=== PATIENT | male | born 1975 | race Caucasian/White ===

== ENCOUNTER 2022-05-27 11:50 | Inpatient (IN) | payer SELFPAY ==
[2022-05-27 12:12] LABS: Urine Blood Trace-intact (Negative); Urine Glucose Trace (Negative); Urine Protein 1+ (Negative); Urine Specific Gravity >=1.030 (1.005-1.030)
[2022-05-27] MEDS ORDERED: NOREPINEPHRINE 4mg/D5W 250mL 4 MG/250 ML BAG IV ONE (12:14)
[2022-05-27] MEDS ORDERED: NA CHLORIDE 0.9% 250 ML IV PRN (12:24)
[2022-05-27] MEDS ORDERED: dexAMETHasone 10 MG/ML VIAL IV SCH ×2 (12:29→17:00)
--- NOTE | 2022-05-27 12:29 | RAD REPORT ---
EXAM DESCRIPTION: RAD - Chest Single View - 05/27/2022 12:22 pm CLINICAL HISTORY: CPR, Over dose COMPARISON: No comparisons FINDINGS: Lines: Endotracheal tube at the clavicular heads.NG tube overlies the stomach. Lungs: No evidence of edema or pneumonia. Pleural: Poorly defined opacities in the left lung and right lung base. Cardiac: Enlarged cardiac silhouette. Bones: No acute fractures. Other: None IMPRESSION: Bilateral opacities, left greater than right, which could reflect sequela of aspiration.
[2022-05-27 12:33] LABS: Absolute Lymphocytes (CBC) 2.9 K/uL (0.7-4.9); Hematocrit 41.4 % (39.6-49.0); Lymphocytes % 27.1 % (15.3-44.8); MCV 96.5 fL (80-100); MPV 8.4 fL (7.6-11.3); RBC Red Blood Cell Count 4.29 M/uL (4.33-5.43)
[2022-05-27 12:40] LABS: Protime INR 1.15
--- NOTE | 2022-05-27 12:59 | RAD REPORT ---
EXAM DESCRIPTION: CT - CTHCSPWOC - 05/27/2022 12:44 pm CLINICAL HISTORY: Unresponsive COMPARISON: No comparisons TECHNIQUE: Axial 5 mm thick images of the head were obtained. Axial 2 mm thick images of the cervical spine were obtained with sagittal and coronal reconstruction images generated and reviewed. All CT scans are performed using dose optimization technique as appropriate and may include automated exposure control or mA/KV adjustment according to patient size. FINDINGS: CT HEAD WITHOUT CONTRAST: Diffuse loss of the cohn-white differentiation within the cerebral hemispheres bilaterally and the ba brock ganglia with generalized effacement of the sulci.No acute intracranial hemorrhage. No midline luann ft. No hydrocephalus though the ventricular system is partially effaced. Paranasal sinus thickening.The calvarium is intact. CT CERVICAL SPINE WITHOUT CONTRAST: No fracture or subluxation.No prevertebral soft tissues swelling is identified. Enteric tube and orog astric tube. Airspace disease is present in the lungs. Multilevel degenerative changes are present in the spine. IMPRESSION: 1. Findings compatible with a global hypoxic/ischemic insult. 2. No acute fracture traumatic malalignment of the cervical spine.
[2022-05-27 13:06] LABS: ALT/SGPT 114 U/L (12-78); AST/SGOT 89 U/L (15-37); Albumin 3.4 g/dL (3.4-5.0); Alkaline Phosphatase 51 U/L (45-117); BUN Blood Urea Nitrogen 19 mg/dL (7-18); Bicarbonate 20 mmol/L (21-32); Bilirubin Direct 0.3 mg/dL (0-0.2); Bilirubin Total 0.6 mg/dL (0.2-1.0); Glomerular Filtration Rate 56 ml/min (=/>90); Glucose Level 296 mg/dL (74-106); Magnesium 2.3 mg/dL (1.8-2.4); NT PRO-BNP 22 pg/mL (<125); Potassium 3.7 mmol/L (3.5-5.1); Protein, Total 6.5 g/dL (6.4-8.2); Sodium Level 138 mmol/L (136-145); Troponin High Sensitivity 8.3 pg/mL (<58.9)
[2022-05-27 13:19] LABS: Barbiturates NEGATIVE (NEGATIVE); Benzodiazepines NEGATIVE (NEGATIVE); Cocaine NEGATIVE (NEGATIVE); METHAMPHETAM NEGATIVE (NEGATIVE); Methadone NEGATIVE (NEGATIVE); Opiates NEGATIVE (NEGATIVE); Phencyclidine NEGATIVE (NEGATIVE); THC Cannibis NEGATIVE (NEGATIVE)
[2022-05-27] MEDS ORDERED: FOSPHENYTOIN PE 500 MG/10 ML VIAL ONE ×2 (13:41→13:45)
[2022-05-27] MEDS ORDERED: NA CHLORIDE 0.9% 100 ML ONE (13:42)
[2022-05-27] MEDS ORDERED: propofoL 1,000 MG/100 ML VIAL IV ONE (13:46)
[2022-05-27] MEDS ORDERED: MORPHINE 4 MG/ML SYR ONE (13:57)
[2022-05-27 14:03] LABS: Arterial Blood Carboxyhemoglob 1.9 % (0-1.5); Blood Gas Oxyhemoglobin 95.1 % (94-97); Blood O2 Saturation 98.2 % (92-98.5)
[2022-05-27] MEDS ORDERED: dexAMETHasone 10 MG/ML VIAL ONE (14:23)
--- NOTE | 2022-05-27 15:25 | P.HP ---
Certification for Inpatient With expected LOS: >2 Midnights Practitioner: I am a practitioner with admitting privileges, knowledge of patient current condition, hospital course, and medical plan of care. Services: Services provided to patient in accordance with Admission requirements found in Title 42 Section 412.3 of the Code of Federal Regulations Patient History Date of Service: 05/27/22 Reason for admission: Comatosed History of Present Illness: Pt is 47 yrs of age patient lost consciousness apparently he was talking to his girlfriend there is no preceding history of coronary artery disease history of drug drug abuse but that has been resolved all denies any chest pain was admitted with CPR in progress currently he is comatose on propofol Allergies No Known Allergies Allergy (Unverified 05/27/22 15:22) - Past Medical/Surgical History -: Diabetes Review of Systems is unable to be obtained Physical Examination - Physical Exam General: Comatose Respiratory: Clear to auscultation bilaterally, Diminished Cardiovascular: No edema, Regular rate/rhythm Gastrointestinal: Normal bowel sounds, Soft and benign Musculoskeletal: Other (Extremities mottled) Neurological: Other (Patient is comatose frontal reflexes are negative pupils fixed and dilated) Assessment and Plan - Problems (Diagnosis) (1) Acute anoxic encephalopathy Current Visit: Yes Status: Acute Plan: Patient is 47 years of age admitted with acute anoxic encephalopathy apparently passed out quite suddenly apart from diabetes no other medical issues he is currently on a ventilator pupils fixed and dilated extremities cold and clammy labs reviewed CT scan of the head consistent with anoxic encephalopathy prognosis is very poor discussed with the father his name is Steven telephone #[phone] is in agreement with no CPR no cardioversion informed and will observe him for at least 48 hours if there is no progress consider withdrawing from the ventilator and he agrees on Rocephin and fosphenytoin in addition to steroid - Advance Directives Does patient have a Living Will: No Does patient have a Durable POA for Healthcare: No
[2022-05-27] MEDS ORDERED: FENTANYL CITR 100 MCG/2 ML IV PRN (15:27)
[2022-05-27] MEDS ORDERED: LORazepam 2 MG/ML VIAL IV PRN (15:27)
--- NOTE | 2022-05-27 15:36 | ER ---
Nurse's Notes [facility] Name: Steven Jenkins Age: 47 yrs Sex: Male : 1975 Arrival Date: 05/27/2022 Time: 11:52 Bed 3 Private MD: Diagnosis: Cardiac arrest, cause unspecified;Cerebral edema;Anoxic brain injury Presentation: 05/27 11:44 Chief complaint: EMS states: Found blue, unresponsive with agonal respirations by . ss reported to PD that he is known to use Heroin. Unknown down time. CPR initiated by PD upon arrival to scene. Initial rhythm noted by EMS is PEA. Medications given: Narcan 4 mg, Epi x 4 IVP. Last epi given at 1140, Rhythm upon arrival to ED is sinus tach at 125 bpm. Care prior to arrival: oral intubation. 7.0 ET tube 22 cm at teeth. IV initiated. 18 GA, in the left antecubital area, Oxygen administered. via AMBU bag. Compressions began prior to arrival. 11:44 Method Of Arrival: EMS: [facility] ss 11:44 Acuity: FAUSTINA 1 ss 11:44 Coronavirus screen: Unable to obtain. Ebola Screen: Unable to complete the Ebola ss screening because:. Initial Sepsis Screen: Does the patient meet any 2 criteria? HR > 90 bpm. No. Patient's initial sepsis screen is negative. Does the patient have a suspected source of infection? No. Patient's initial sepsis screen is negative. Risk Assessment: Do you want to hurt yourself or someone else? Patient reports no desire to harm self or others. Onset of symptoms is unknown. Triage Assessment: 12:23 General: Appears well groomed, Behavior is unresponsive. Pain: Denies pain. Neuro: ll1 Meyer Agitation-Sedation Scale (RASS): -5 Unarousable Level of Consciousness is unresponsive, Oriented to none. Cardiovascular: Heart tones S1 S2 Capillary refill < 3 seconds Clubbing of nail beds is absent Patient's skin is warm and dry. Rhythm is sinus tachycardia. Respiratory: Airway is patent Trachea midline Respiratory effort is even, unlabored, Respiratory pattern is regular, symmetrical. GI: Abdomen is flat, Bowel sounds present X 4 quads. Musculoskeletal: Circulation, motion, and sensation intact. Capillary refill < 3 seconds. Historical: - Allergies: 15:25 No Known Allergies; kr3 - Home Meds: 11:59 Unable to obtain [Active]; ss - PMHx: 15:25 Diabetes mellitus; kr3 - PSHx: 15:25 None; kr3 - Immunization history:: Adult Immunizations unknown. - Social history:: Smoking status: unknown. Screenin:10 Abuse screen: Denies threats or abuse. Denies injuries from another. Nutritional bailey screening: No deficits noted. Tuberculosis screening: No symptoms or risk factors identified. Fall Risk. Assessment: 11:45 CPR assessment: unresponsive, pupils fixed \\T\\ dilated, intubated, Ambu ventilation. ss Cardiac rhythm is Sinus tach. 12:13 Reassessment: No changes from previously documented assessment. Patient and/or family ll1 updated on plan of care and expected duration. Pain level reassessed. 12:25 Reassessment: No changes from previously documented assessment. Reassessment:. ll1 12:53 Reassessment: No changes from previously documented assessment. ll1 13:50 Reassessment: Family at bedside. ss 14:15 Reassessment: Spoke with Father, Steven Jenkins and Mother Arianna Jenkins who states ss that they would like to officially make patient DNR status. Dr. Reyes spoke with family as well. Point of Contact for Family [phone], . Dr. Leal notified and states he will call the family. 14:32 Reassessment: No changes from previously documented assessment. Patient and/or family kr3 updated on plan of care and expected duration. Pain level reassessed. 15:20 Reassessment: No changes from previously documented assessment. Patient and/or family kr3 updated on plan of care and expected duration. Pain level reassessed. 15:45 Reassessment: No changes from previously documented assessment. Patient and/or family kr3 updated on plan of care and expected duration. Pain level reassessed. Vital Signs: 11:46 BP 73 / 46; ss 11:46 Pulse 107; Resp 18 A; Temp 98.2(R); Pulse Ox 91% on 15 lpm ETT ambu; Weight 111.13 kg; bailey Height 6 ft. 0 in. (182.88 cm); 12:22 BP 168 / 94; Pulse 126; Resp 18; Pulse Ox 99% on ETT vent; ll1 12:30 BP 208 / 120; Pulse 130; Resp 18; Pulse Ox 99% ; ll1 12:51 BP 224 / 135; Pulse 139; Resp 20; ll1 13:32 BP 103 / 133; Pulse 131; Resp 22 A; Pulse Ox 97% on ETT vent; ll1 13:51 BP 190 / 124; Pulse 130; Resp 22; Temp 98.4(TE); Pulse Ox 96% on ETT vent; kr3 13:57 BP 185 / 109; Pulse 121; Resp 21; Pulse Ox 96% on ETT vent; kr3 14:00 BP 160 / 93; Pulse 113; Pulse Ox 92% on ETT vent; kr3 14:03 BP 163 / 105; Pulse 114; Resp 22; Pulse Ox 88% on ETT vent; kr3 14:27 BP 158 / 99; Pulse 112; Resp 23; Pulse Ox 86% on ETT vent; kr3 14:32 BP 165 / 100; Pulse 114; Resp 22; Pulse Ox 87% on ETT vent; kr3 15:21 BP 169 / 95; Pulse 116; Resp 20; Pulse Ox 93% ; kr3 15:27 Weight 108.86 kg; Height 6 ft. 1 in. (185.42 cm); kr3 15:27 Body Mass Index 31.66 (108.86 kg, 185.42 cm) kr3 12:51 Dr. Reyes informed. Verbalized understanding. ll1 14:00 Dr. Reyes informed of O2 slowly dropping. RT paged. Dr. Reyes speaking with family kr3 about code status. 15:27 information from girlfriend. kr3 Kim Coma Score: 11:46 Eye Response: none(1). Verbal Response: none(1). Motor Response: none(1). Total: 3. ss ED Course: 11:49 Humphrey cath inserted, using sterile technique, 16 Fr., by ED staff, balloon inflated, ss other Inserted by ENA Trammell. Inserted saline lock: 18 gauge in right wrist, using aseptic technique. ,using aseptic technique. Insertion by ENA Grover. 11:52 Patient arrived in ED. eb 11:55 Maintain EMS IV. Dressing intact. Good blood return noted. Site clean \\T\\ dry. Gauge \\T\\ ss site: 18 gauge in L AC. 11:58 Triage completed. ss 12:00 Patient has correct armband on for positive identification. ss 12:04 EKG done, by ED staff, reviewed by Juan Pablo Reyes MD. mb7 12:04 Patient has correct armband on for positive identification. mb7 12:10 Assisted provider with central line placement. Set up central line tray. in right bailey femoral. Dressed with Blood was collected. Inserted saline lock: 18 gauge in left antecubital area, using aseptic technique. Accessed central line 3 lumen. 12:12 Assisted provider with central line placement. Set up central line tray. Triple lumen ss line placed in right femoral. Line placed by Juan Pablo Reyes MD Placement verified by blood return, Dressed with 4X4s, Tegaderm, Blood was collected. Patient tolerated well. Before procedure, did Practitioner(s) obtain informed consent? No. 12:13 Sujatha Nava, RN is Primary Nurse. kr3 12:13 Jp Can RN is Primary Nurse. ll1 12:14 Juan Pablo Reyes MD is Attending Physician. kdr 12:22 COVID-19 SARS RT PCR (Document "Date of Onset" if Symptomatic) Sent. mb7 12:23 XRAY Chest (1 view) In Process Unspecified. EDMS 15:31 Silvestre Leal MD is Hospitalizing Provider. ss 15:45 Patient admitted, IV remains in place. kr3 15:45 Arm band placed on. kr3 Administered Medications: 11:55 Drug: EPINEPHrine 0.1mg/mL 1:10,000 1 mg {Note: Administered by ENA Grover.} Route: ss IVP; Site: left antecubital; 12:26 Follow up: Response: No adverse reaction bailey 12:27 Drug: NS 0.9% 1000 ml Route: IV; Rate: 125 ml/hr; Site: right forearm; bailey 15:46 Follow up: IV Status: Infusion continued upon admission kr3 12:30 Drug: NS 0.9% 1000 ml Route: IV; Rate: 1 bolus; Site: right hand; ph 15:46 Follow up: Response: No adverse reaction; IV Status: Completed infusion; IV Intake: kr3 1000ml 13:45 Drug: CEREbyx (fosphenytoin) 1 grams Route: IVPB; Site: right hand; ph 14:33 Follow up: Response: No adverse reaction; IV Status: Completed infusion; IV Intake: kr3 100ml 13:50 Drug: Propofol 0.5 mg/kg Route: IVP; Site: right femoral; kr3 14:33 Follow up: Response: No adverse reaction kr3 13:54 Drug: morphine 4 mg Route: IVP; Infused Over: 4 mins; Site: right femoral; ph 14:33 Follow up: Response: No adverse reaction kr3 14:25 Drug: Dexamethasone 10 mg Route: IVP; Site: right hand; kr3 14:34 Follow up: Response: No adverse reaction kr3 15:31 Not Given (Hemodynamic Parameters): Levophed (norepinephrine) 0.1 mcg/kg/min IV at ss calculated rate See Administration Instructions; (Standard concentration 4 mg / 250 mL D5W); Recommended max rate 3 mcg/kg/min; Titrate 0.05 mcg/kg/min as often as every 5 minutes to achieve goal (see titration policy); Goal parameter MAP greater than 65 mmHg. Medication: 12:25 VIS not applicable for this client. ll1 Intake: 14:33 IV: 100ml; Total: 100ml. kr3 15:46 IV: 1000ml; Total: 1100ml. kr3 Outcome: 15:36 Decision to Hospitalize by Provider. ss 15:44 Admitted to ICU accompanied by nurse, via stretcher, room ICU 3, with oxygen, on kr3 monitor, with chart, Report called to Mojgan Rosen RN. 15:44 Condition: stable 15:45 Outcome Resuscitation successful kr3 16:19 Patient left the ED. kr3 Signatures: Dispatcher [employer] EDMS Juan Pablo Reyes MD MD [facility] Nancie Levin RN RN Arianna Pandey RN RN ph Botello, Elizabeth eb Lewis, Lynsay, RN RN ll1 Mara Allen mb7 Lenore Rios RN RN ha Reid, Kelley, RN RN kr3 Corrections: (The following items were deleted from the chart) 12:10 11:46 Pulse 107bpm; Resp 18bpm; Assisted; Pulse Ox 91% 15 lpm ambu; Temp 98.3F bailey Temporal; ss 14:29 14:03 BP 163 / 105; Pulse 114bpm; Resp 22bpm; Pulse Ox 96%; kr3 kr3 15:25 11:59 Allergies: Unable to obtain; kr3 PMHx: Unable to Obtain; ss kr3 PSHx: Unable to Obtain; ss kr3
--- NOTE | 2022-05-27 15:37 | EDPHYS ---
Physician Documentation [facility] Name: Steevn Jenkins Age: 47 yrs Sex: Male : 1975 Arrival Date: 05/27/2022 Time: 11:52 Bed 3 Private MD: ED Physician Juan Pablo Reyes HPI: 05/27 12:20 This 47 yrs old Male presents to ER via EMS with complaints of CPR, Overdose. kdr 12:20 Preceding the arrest, the patient was found down by family. The arrest occurred at [facility] home. Pre-hospital course: Bystanders at the scene performed CPR. EMS care prior to arrival: initiation of ACLS, ACLS details: Initial rhythm was asystole. The presenting rhythm is normal sinus rhythm. Airway: Ambu assist ventilation, oral intubation, Medications given by EMS prior to arrival - Defibrillation was not performed, an external pacer was not used, Response to therapy: return of rhythm. 16:26 The patient has not experienced similar symptoms in the past. It is unknown whether or kdr not the patient has recently seen a physician. Patient is reportedly an opioid abuser in the past. Is not known whether or not he currently has been using opioids. The only thing known is that the patient has been a substance abuser in the past. It is unclear whether or not he is was part of an ongoing treatment program there is no other information about what happened or what the patient was involved with prior to being found unresponsive at home. Historical: - Allergies: 15:25 No Known Allergies; kr3 - Home Meds: 11:59 Unable to obtain [Active]; ss - PMHx: 15:25 Diabetes mellitus; kr3 - PSHx: 15:25 None; kr3 - Immunization history:: Adult Immunizations unknown. - Social history:: Smoking status: unknown. ROS: 16:26 Constitutional: Unobtainable secondary to altered mental status and obtunded. The kdr patient is also intubated. Exam: 16:26 Constitutional: This is a well developed, well nourished patient who is awake, alert, kdr and in no acute distress. Head/Face: Normocephalic, atraumatic. 16:26 Eyes: Pupils: are fixed and dilated. 16:26 Neuro: Orientation: Mentation: Memory: Cranial nerves: Patient is intubated and kdr unresponsive. Vital Signs: 11:46 BP 73 / 46; ss 11:46 Pulse 107; Resp 18 A; Temp 98.2(R); Pulse Ox 91% on 15 lpm ETT ambu; Weight 111.13 kg; bailey Height 6 ft. 0 in. (182.88 cm); 12:22 BP 168 / 94; Pulse 126; Resp 18; Pulse Ox 99% on ETT vent; ll1 12:30 BP 208 / 120; Pulse 130; Resp 18; Pulse Ox 99% ; ll1 12:51 BP 224 / 135; Pulse 139; Resp 20; ll1 13:32 BP 103 / 133; Pulse 131; Resp 22 A; Pulse Ox 97% on ETT vent; ll1 13:51 BP 190 / 124; Pulse 130; Resp 22; Temp 98.4(TE); Pulse Ox 96% on ETT vent; kr3 13:57 BP 185 / 109; Pulse 121; Resp 21; Pulse Ox 96% on ETT vent; kr3 14:00 BP 160 / 93; Pulse 113; Pulse Ox 92% on ETT vent; kr3 14:03 BP 163 / 105; Pulse 114; Resp 22; Pulse Ox 88% on ETT vent; kr3 14:27 BP 158 / 99; Pulse 112; Resp 23; Pulse Ox 86% on ETT vent; kr3 14:32 BP 165 / 100; Pulse 114; Resp 22; Pulse Ox 87% on ETT vent; kr3 15:21 BP 169 / 95; Pulse 116; Resp 20; Pulse Ox 93% ; kr3 15:27 Weight 108.86 kg; Height 6 ft. 1 in. (185.42 cm); kr3 15:27 Body Mass Index 31.66 (108.86 kg, 185.42 cm) kr3 12:51 Dr. Reyes informed. Verbalized understanding. ll1 14:00 Dr. Reyes informed of O2 slowly dropping. RT paged. Dr. Reyes speaking with family kr3 about code status. 15:27 information from girlfriend. kr3 Fackler Coma Score: 11:46 Eye Response: none(1). Verbal Response: none(1). Motor Response: none(1). Total: 3. ss MDM: 16:26 Data reviewed: vital signs, nurses notes, lab test result(s), EKG, radiologic studies. kdr 17:42 Patient medically screened. kdr 05/27 12:03 Order name: COVID-19 SARS RT PCR (Document "Date of Onset" if Symptomatic); Complete ss Time: 14:27 05/27 12:03 Order name: glucometer results - FOR PT WITH NO ID ss 05/27 12:03 Order name: Basic Metabolic Panel; Complete Time: 14:27 pm1 05/27 12:03 Order name: CBC with Diff; Complete Time: 13:10 pm1 05/27 12:03 Order name: LFT's; Complete Time: 14:27 pm1 05/27 12:03 Order name: Magnesium; Complete Time: 14:27 pm1 05/27 12:03 Order name: NT PRO-BNP; Complete Time: 14:27 pm1 05/27 12:03 Order name: PT-INR; Complete Time: 13:10 pm1 05/27 12:03 Order name: Troponin HS; Complete Time: 14:27 pm1 05/27 12:03 Order name: Acetaminophen; Complete Time: 14:27 pm1 05/27 12:03 Order name: ETOH Level; Complete Time: 14:27 pm1 05/27 12:03 Order name: Ptt, Activated; Complete Time: 13:10 pm1 05/27 12:03 Order name: Salicylate; Complete Time: 14:27 pm1 05/27 12:03 Order name: Urine Drug Screen; Complete Time: 14:27 pm1 05/27 12:03 Order name: XRAY Chest (1 view); Complete Time: 13:10 pm1 05/27 12:12 Order name: Urine Dipstick-Ancillary; Complete Time: 13:10 EDHI 05/27 12:18 Order name: CT Head C Spine kdr 05/27 12:25 Order name: CBC with Automated Diff EDMS 05/27 12:25 Order name: Comprehensive Metabolic Panel EDMS 05/27 12:25 Order name: Chest Pa And Lat (2 Views) EDMS 05/27 12:25 Order name: Chest Pa And Lat (2 Views) EDMS 05/27 12:25 Order name: Chest Pa And Lat (2 Views) EDMS 05/27 12:25 Order name: Chest Pa And Lat (2 Views) EDMS 05/27 12:28 Order name: ABG Arterial Blood Gas EDHI 05/27 12:28 Order name: ABG Arterial Blood Gas EDHI 05/27 12:28 Order name: ABG Arterial Blood Gas EDHI 05/27 12:29 Order name: Blood Culture EDHI 05/27 12:31 Order name: Cortisol EDHI 05/27 13:01 Order name: CT; Complete Time: 13:10 EDMS 05/27 14:04 Order name: ABG Arterial Blood Gas; Complete Time: 14:27 EDMS 05/27 12:03 Order name: EKG; Complete Time: 12:04 pm1 05/27 12:03 Order name: Cardiac monitoring; Complete Time: 12:04 pm1 05/27 12:03 Order name: EKG - Nurse/Tech; Complete Time: 12:04 pm1 05/27 12:03 Order name: IV Saline Lock; Complete Time: 12:09 pm1 05/27 12:03 Order name: Labs collected and sent; Complete Time: 12:09 pm1 05/27 12:03 Order name: O2 Per Protocol; Complete Time: 12:09 pm1 05/27 12:03 Order name: O2 Sat Monitoring; Complete Time: 12:09 pm1 05/27 12:03 Order name: Urine Dipstick-Ancillary (obtain specimen); Complete Time: 12:09 pm1 05/27 12:09 Order name: Glucose Level; Complete Time: 12:09 05/27 12:25 Order name: NPO; Complete Time: 12:26 EDHI 05/27 12:28 Order name: Respiratory Therapy Consult EDHI Administered Medications: 11:55 Drug: EPINEPHrine 0.1mg/mL 1:10,000 1 mg {Note: Administered by ENA Grover.} Route: ss IVP; Site: left antecubital; 12:26 Follow up: Response: No adverse reaction bailey 12:27 Drug: NS 0.9% 1000 ml Route: IV; Rate: 125 ml/hr; Site: right forearm; bailey 15:46 Follow up: IV Status: Infusion continued upon admission kr3 12:30 Drug: NS 0.9% 1000 ml Route: IV; Rate: 1 bolus; Site: right hand; ph 15:46 Follow up: Response: No adverse reaction; IV Status: Completed infusion; IV Intake: kr3 1000ml 13:45 Drug: CEREbyx (fosphenytoin) 1 grams Route: IVPB; Site: right hand; ph 14:33 Follow up: Response: No adverse reaction; IV Status: Completed infusion; IV Intake: kr3 100ml 13:50 Drug: Propofol 0.5 mg/kg Route: IVP; Site: right femoral; kr3 14:33 Follow up: Response: No adverse reaction kr3 13:54 Drug: morphine 4 mg Route: IVP; Infused Over: 4 mins; Site: right femoral; ph 14:33 Follow up: Response: No adverse reaction kr3 14:25 Drug: Dexamethasone 10 mg Route: IVP; Site: right hand; kr3 14:34 Follow up: Response: No adverse reaction kr3 15:31 Not Given (Hemodynamic Parameters): Levophed (norepinephrine) 0.1 mcg/kg/min IV at ss calculated rate See Administration Instructions; (Standard concentration 4 mg / 250 mL D5W); Recommended max rate 3 mcg/kg/min; Titrate 0.05 mcg/kg/min as often as every 5 minutes to achieve goal (see titration policy); Goal parameter MAP greater than 65 mmHg. Disposition: 16:26 Critical Care:. kdr Disposition Summary: 05/27/22 15:36 Hospitalization Ordered Hospitalization Status: Inpatient Admission ss Provider: Silvestre Leal Location: Intensive Care Unit ss Condition: Stable ss Problem: new ss Bed/Room Type: Standard Room Assignment: 3- ss Diagnosis - Cardiac arrest, cause unspecified ss - Cerebral edema ss - Anoxic brain injury ss Forms: - Medication Reconciliation Form ss - SBAR form ss Critical care time excluding procedures: 16:26 Critical care time: Bedside Care: 1 minutes, Consultation: 15 minutes, Family kdr Intervention: 15 minutes. Total time: 31 minutes Signatures: Dispatcher [employer] Juan Pablo Agosto MD MD kdr Mickail, Joel, PA PA jmm Smirch, Shelby, RN RN ss Arianna Pandey RN RN ph Marinas, Patrick, NP SHOVE UP pm1 Jp Can RN RN ll1 Lenore Rios RN RN ha Reid, Kelley, RN RN kr3 Corrections: (The following items were deleted from the chart) 15:25 11:59 Allergies: Unable to obtain; ss kr3 15:25 11:59 PMHx: Unable to Obtain; ss kr3 15:25 11:59 PSHx: Unable to Obtain; ss kr3
[2022-05-27] MEDS: CEFTRIAXONE 2,000 MG in NA CHLORIDE 0.9% 100 ML IV SCH (17:02)
[2022-05-27] MEDS: FOSPHENYTOIN PE 100 MG/2 ML VIAL IV SCH (17:03)
[2022-05-27] MEDS: NA CHLORIDE 0.9% 1,000 ML IV SCH ×2 (17:03→20:25)
[2022-05-27 17:49] VITALS: BMI 31.6
[2022-05-27] MEDS: NOREPINEPHRINE 4 MG in D5W 250 ML IV SCH (20:15)
[2022-05-27] MEDS: dexAMETHasone 10 MG/ML VIAL IV SCH (20:53)
[2022-05-27] MEDS: FAMOTIDINE 20 MG/2 ML VIAL IV SCH (20:54)
[2022-05-28] MEDS: FOSPHENYTOIN PE 100 MG/2 ML VIAL IV SCH ×3 (00:21→16:29)
[2022-05-28] MEDS: NA CHLORIDE 0.9% 1,000 ML IV SCH ×3 (04:05→10:03)
[2022-05-28] MEDS: dexAMETHasone 10 MG/ML VIAL IV SCH ×3 (04:38→20:35)
[2022-05-28 05:31] LABS: Absolute Lymphocytes (CBC) 0.8 K/uL (0.7-4.9); Hematocrit 43.7 % (39.6-49.0); Lymphocytes % 7.1 % (15.3-44.8); MCV 93.5 fL (80-100); MPV 9.2 fL (7.6-11.3); RBC Red Blood Cell Count 4.68 M/uL (4.33-5.43)
[2022-05-28 05:37] LABS: Albumin 3.3 g/dL (3.4-5.0); Bilirubin Total 0.3 mg/dL (0.2-1.0); Potassium 4.4 mmol/L (3.5-5.1); Protein, Total 6.8 g/dL (6.4-8.2)
[2022-05-28 05:43] LABS: Arterial Blood Carboxyhemoglob 0.4 % (0-1.5); Blood Gas Oxyhemoglobin 95.7 % (94-97); Blood O2 Saturation 97.5 % (92-98.5)
--- NOTE | 2022-05-28 08:11 | RAD REPORT ---
EXAM DESCRIPTION: RAD - Chest Single View - 05/28/2022 7:02 am CLINICAL HISTORY: resp failure COMPARISON: Portable 05/27/2022 TECHNIQUE: AP portable chest image was obtained 05/28/2022 7:02 am . FINDINGS: NG/ OG tube remains in place extending below the diaphragm, off the field of view. Endotracheal tube tip is at the clavicle head level. This is the superior-most acceptable position. A dvancement of the ET tube 3 cm would be a more optimal positioning. Lung volumes remain low. Hazy left base opacification is present obscuring the left hemidiaphragm. Nova ng markings have progressed slightly from prior imaging. Heart size is normal size for portable imaging. Central vasculature is mildly prominent. No pneumotho rax seen. Small left pleural effusion cannot be excluded. No acute bony abnormality seen. No acute aortic findings suspected. IMPRESSION: Central vasculature and lung markings have increased. Patient can be monitored for worse carla pulmonary edema. ET tube tip is at the clavicle head level. This is the superior-most acceptable positioning. Advancem ent of the ET tube 3 cm would be more optimal positioning. NG/OG tube tip extends below the diaphragm, off the field of view.
[2022-05-28] MEDS: FAMOTIDINE 20 MG/2 ML VIAL IV SCH ×2 (08:44→20:35)
[2022-05-28] MEDS ORDERED: ENOXAPARIN 40 MG/0.4 ML SQ SCH (09:00)
[2022-05-28] MEDS: CEFTRIAXONE 2,000 MG in NA CHLORIDE 0.9% 100 ML IV SCH (09:37)
--- NOTE | 2022-05-28 10:05 | P.PN ---
Subjective Date of Service: 05/28/22 Chief Complaint: Comatosed Patient is unresponsive comatose also spontaneous movement Review of Systems is unable to be obtained Physical Examination - Vital Signs Temperature: 103.7 F Blood Pressure: 105/72 Pulse: 123 Respirations: 24 Pulse Ox (%): 97 - Physical Exam General: Comatose Neurological: Other (Pupils fixed and dilated absent plantar responses dynamic instability) - Studies Laboratory Data (last 24 hrs) 05/28/22 04:46: Sodium 143, Potassium 4.4, BUN 25 H, Creatinine 1.66 H, Glucose 233 H, Total Bilirubin 0.3, AST 73 H, ALT 116 H, Alkaline Phosphatase 48 05/28/22 04:46: WBC 10.7, Hgb 14.4, Hct 43.7, Plt Count 226 D 05/27/22 12:24: PT 12.7 H, INR 1.15, APTT 28.0 05/27/22 12:24: WBC 10.6, Hgb 13.4 L, Hct 41.4, Plt Count 299 05/27/22 12:24: Sodium 138, Potassium 3.7, BUN 19 H, Creatinine 1.51 H, Glucose 296 H, Magnesium 2.3, Total Bilirubin 0.6, AST 89 H, ALT 114 H, Alkaline Phosphatase 51 Assessment And Plan - Current Problems (Diagnosis) (1) Acute anoxic encephalopathy Current Visit: Yes Status: Acute Plan: Patient admitted with severe anoxic encephalopathy blood gases show hypoxemia hypercapnia prognosis poor unlikely to survive patient is DNR [facility] have been contacted kidney function is worse reduce IV fluids DC IV antibiotics patient is on fosphenytoin and lorazepam as needed continue with mechanical ventilation
[2022-05-28] MEDS: NOREPINEPHRINE 4 MG in D5W 250 ML IV SCH (14:45)
[2022-05-29] MEDS: FOSPHENYTOIN PE 100 MG/2 ML VIAL IV SCH ×3 (00:34→17:00)
[2022-05-29] MEDS: NA CHLORIDE 0.9% 1,000 ML IV SCH ×2 (00:34→12:43)
[2022-05-29] MEDS: dexAMETHasone 10 MG/ML VIAL IV SCH ×3 (05:14→21:00)
[2022-05-29 05:51] LABS: Arterial Blood Carboxyhemoglob 0.4 % (0-1.5); Blood Gas Oxyhemoglobin 94.1 % (94-97); Blood O2 Saturation 95.5 % (92-98.5)
--- NOTE | 2022-05-29 07:28 | RAD REPORT ---
EXAM DESCRIPTION: RAD - Chest Single View - 05/29/2022 6:05 am CLINICAL HISTORY: resp failure COMPARISON: Portable 05/28/2022 TECHNIQUE: AP portable chest image was obtained 05/29/2022 6:05 am . FINDINGS: Endotracheal tube remains in place. Tip is at the clavicle head level. This is the superio r-most acceptable position. Advancement of the tube 3 cm would be more optimal positioning. NG/OG tub e extends below the diaphragm, off the field of view. Lung volumes are improved over the prior day examination. Lung parenchymal opacities have cleared are mostly cleared. No new or progressive lung parenchymal finding. Heart and vasculature are normal. No measurable pleural effusion and no pneumothorax. No acute bony abnormality seen. No acute aortic findings suspected. IMPRESSION: Tip of the endotracheal tube is at the clavicle head level, superior-most acceptable pos ition. Advancement of the tube 3 cm would be more optimal positioning. NG/OG tube extends below the diaphragm, off the field of view. Improved aeration of the lung shields. Prior date lung parenchymal opacities have mostly cleared.
[2022-05-29] MEDS: FAMOTIDINE 20 MG/2 ML VIAL IV SCH ×2 (09:09→21:00)
[2022-05-29] MEDS: NOREPINEPHRINE 4 MG in D5W 250 ML IV SCH ×2 (09:10→17:02)
--- NOTE | 2022-05-29 10:42 | P.PN ---
Subjective Date of Service: 05/29/22 Chief Complaint: Comatosed No new change patient is comatose with anomic instability is still on vasopressors Review of Systems is unable to be obtained Physical Examination - Vital Signs Temperature: 96.2 F Blood Pressure: 98/62 Pulse: 101 Respirations: 30 Pulse Ox (%): 98 - Physical Exam General: Comatose Respiratory: Clear to auscultation bilaterally Cardiovascular: No edema Neurological: Other (Pupils fixed dilated intra responses absent normal spontaneous respirations) Assessment And Plan - Current Problems (Diagnosis) (1) Acute anoxic encephalopathy Current Visit: Yes Status: Acute Plan: Patient has severe anoxic encephalopathy with no improvement in the past 48 hours plan to do an apnea test [facility] has been contacted is little hypercapnic vent rate has been adjusted worsening renal function discussed with family regarding care plan/Father is in agreement with withdrawal of care/ Inc levophed for now
[2022-05-29 11:14] LABS: Arterial Blood Carboxyhemoglob 0.1 % (0-1.5); Blood Gas Oxyhemoglobin 92.5 % (94-97); Blood O2 Saturation 93.9 % (92-98.5)
--- NOTE | 2022-05-29 12:31 | P.PN ---
Date of Service: 05/29/22 Failed the apnea test his PCO2 increased to 100 follow the protocol and of is 10:51 AM
--- NOTE | 2022-05-29 14:20 | P.DS ---
Admission Date: 05/28/22 Discharge Date: 05/29/22 Disposition: Discharge Condition: Reason for Admission: Comatosed - Problems (1) Acute anoxic encephalopathy Current Visit: Yes Status: Acute Brief History of Present Illness: Pt is 47 yrs of age patient lost consciousness apparently he was talking to his girlfriend there is no preceding history of coronary artery disease history of drug drug abuse but that has been resolved all denies any chest pain was admitted with CPR in progress currently he is comatose on propofol Hospital Course: PT AW anoxic encepahlopathy. No response at 48 hours Failed apnea test. Family members present at bedside. [facility] present for organ donation Vital Signs/Physical Exam: Temp Pulse Resp BP Pulse Ox 96.2 F L 101 H 30 H 98/62 98 05/29/22 12:30 05/29/22 12:30 05/29/22 12:30 05/29/22 12:30 05/29/22 12:30 Laboratory Data at Discharge: WBC 10.7 K/uL (4.3-10.9) 05/28/22 04:46 Hgb 14.4 g/dL (13.6-17.9) 05/28/22 04:46 Hct 43.7 % (39.6-49.0) 05/28/22 04:46 Plt Count 226 K/uL (152-406) D 05/28/22 04:46 PT 12.7 SECONDS (9.5-12.5) H 05/27/22 12:24 INR 1.15 05/27/22 12:24 APTT 28.0 SECONDS (24.3-36.9) 05/27/22 12:24 Sodium 143 mmol/L (136-145) 05/28/22 04:46 Potassium 4.4 mmol/L (3.5-5.1) 05/28/22 04:46 BUN 25 mg/dL (7-18) H 05/28/22 04:46 Creatinine 1.66 mg/dL (0.55-1.3) H 05/28/22 04:46 Glucose 233 mg/dL (74-106) H 05/28/22 04:46 Magnesium 2.3 mg/dL (1.8-2.4) 05/27/22 12:24 Total Bilirubin 0.3 mg/dL (0.2-1.0) 05/28/22 04:46 AST 73 U/L (15-37) H 05/28/22 04:46 ALT 116 U/L (12-78) H 05/28/22 04:46 Alkaline Phosphatase 48 U/L (45-117) 05/28/22 04:46 Followup: NONE,NONE [Primary Care Provider] -
--- NOTE | 2022-05-29 17:40 | P.PN ---
Date of Service: 05/29/22 Failed apnea at 10.51 AM on 05/29/2022. Time of 10.51 AM 05/29/2022 Pt is in deep coma, unresponsive to painful stimuli No brain stem reflexes No spontaneous movements or posturing or respirations No cranial nerve reflexes Pupils fixed and dilated No corneal reflex on both eyes No nystagmus noted with cold water irrigation on both ears Absent gag reflex No drug intoxication No Dolls eye movement. No gag or cough reflex. Patient not on any sedation
[2022-05-29 19:48] VITALS: O2SAT 95
[2022-05-29] MEDS ORDERED: NA CHLORIDE 0.9% 1,000 ML IV SCH (22:00)
[2022-05-29 22:14] LABS: Absolute Lymphocytes (CBC) 2.1 K/uL (0.7-4.9); Hematocrit 45.4 % (39.6-49.0); Lymphocytes % 12.4 % (15.3-44.8); MCV 97.8 fL (80-100); MPV 8.8 fL (7.6-11.3); RBC Red Blood Cell Count 4.64 M/uL (4.33-5.43)
[2022-05-29 22:17] LABS: Protime INR 1.29
[2022-05-29 22:20] LABS: Urine Appearance Cloudy (Clear); Urine Blood 2+ (Negative); Urine Color Yellow (Yellow); Urine Glucose Trace (Negative); Urine Protein 3+ (Negative); Urine Specific Gravity >=1.030 (1.005-1.030)
[2022-05-29 22:22] LABS: Urine RBC <5 /HPF (NONE SEEN)
[2022-05-29 22:23] LABS: Arterial Blood Carboxyhemoglob 0.7 % (0-1.5); Blood Gas Oxyhemoglobin 93.7 % (94-97); Blood O2 Saturation 95.7 % (92-98.5)
[2022-05-29 22:23] LABS: Urine Bacteria 20-50 /HPF (NONE SEEN)
[2022-05-29] MEDS: D5W 1,000 ML with NA BICARB 8.4% 100 MEQ IV SCH ×2 (22:29)
[2022-05-29 22:30] LABS: Albumin 3.3 g/dL (3.4-5.0); Bilirubin Direct 0.2 mg/dL (0-0.2); Bilirubin Total 0.5 mg/dL (0.2-1.0); CKMB Creatine Kinase MB 3.9 ng/mL (1.0-3.6); Magnesium 3.3 mg/dL (1.8-2.4); Potassium 3.3 mmol/L (3.5-5.1); Protein, Total 6.8 g/dL (6.4-8.2)
[2022-05-29] MEDS: PIPER TAZO 3.375 GM in NA CHLORIDE 0.9% 100 ML IV SCH (22:30)
[2022-05-29 22:35] LABS: Phosphorus 0.5 mg/dL (2.5-4.9)
[2022-05-29 23:30] LABS: Urine Bilirubin NEGATIVE (Negative)
[2022-05-30] MEDS: NOREPINEPHRINE 4 MG in D5W 250 ML IV SCH ×2 (00:41→06:17)
[2022-05-30] MEDS: FOSPHENYTOIN PE 100 MG/2 ML VIAL IV SCH ×2 (00:45→08:25)
[2022-05-30 03:14] LABS: Arterial Blood Carboxyhemoglob 0.7 % (0-1.5); Blood Gas Oxyhemoglobin 92.9 % (94-97); Blood O2 Saturation 94.8 % (92-98.5)
[2022-05-30] MEDS: dexAMETHasone 10 MG/ML VIAL IV SCH ×2 (05:00→13:00)
[2022-05-30 06:04] LABS: Absolute Lymphocytes (CBC) 1.8 K/uL (0.7-4.9); Hematocrit 43.8 % (39.6-49.0); Lymphocytes % 11.5 % (15.3-44.8); MPV 9.4 fL (7.6-11.3); RBC Red Blood Cell Count 4.46 M/uL (4.33-5.43)
[2022-05-30 06:06] LABS: Urine Appearance Cloudy (Clear); Urine Blood 3+ (Negative); Urine Color Yellow (Yellow); Urine Glucose Negative (Negative); Urine Protein 2+ (Negative); Urine Specific Gravity >=1.030 (1.005-1.030); Urine Urobilinogen 0.2 mg/dL (0.2-1.0); Urine pH 5.5 (5.0-7.0)
[2022-05-30 06:07] LABS: Urine Bilirubin NEGATIVE (Negative)
[2022-05-30 06:11] LABS: Protime INR 1.31
[2022-05-30 06:14] LABS: Urine Bacteria >50 /HPF (NONE SEEN); Urine Urothelial Cells <5 /HPF (NONE SEEN)
[2022-05-30 06:15] LABS: Urine RBC <5 /HPF (NONE SEEN)
[2022-05-30 06:32] LABS: ALT/SGPT 82 U/L (12-78); AST/SGOT 79 U/L (15-37); Alkaline Phosphatase 60 U/L (45-117); BUN Blood Urea Nitrogen 42 mg/dL (7-18); Bicarbonate 22 mmol/L (21-32); Bilirubin Direct 0.3 mg/dL (0-0.2); Bilirubin Total 0.7 mg/dL (0.2-1.0); Glomerular Filtration Rate 15 ml/min (=/>90); Glucose Level 412 mg/dL (74-106); Magnesium 3.2 mg/dL (1.8-2.4); Potassium 2.4 mmol/L (3.5-5.1); Protein, Total 6.4 g/dL (6.4-8.2)
[2022-05-30 06:35] LABS: Phosphorus < 0.5 mg/dL (2.5-4.9)
[2022-05-30 06:38] LABS: Arterial Blood Carboxyhemoglob 0.9 % (0-1.5); Blood Gas Oxyhemoglobin 92.3 % (94-97); Blood O2 Saturation 94.8 % (92-98.5)
[2022-05-30 06:41] LABS: Sodium Level 170 mmol/L (136-145)
[2022-05-30] MEDS ORDERED: SODIUM BICARB 50 MEQ/50ML VIAL ONE (06:55)
--- NOTE | 2022-05-30 07:15 | RAD REPORT ---
EXAM DESCRIPTION: RAD - Chest Single View - 05/30/2022 6:17 am CLINICAL HISTORY: Organ Donation Eval COMPARISON: Portable May 29 TECHNIQUE: AP portable chest image was obtained 05/30/2022 6:17 am . FINDINGS: Tip of the endotracheal tube is T3 level 7- 8 cm above the cornelius. NG tube is below the di aphragm. Lung volumes are low. Bibasilar atelectasis is present. Minimal lung base infiltrates could be masked . Diffuse edema pattern. Heart and vasculature are normal. No measurable pleural effusion and no pneumothorax. IMPRESSION: Low lung volume exam showing bibasilar atelectasis. No cardiomegaly or significant pulmonary edema pattern.
--- NOTE | 2022-05-30 08:03 | EKG ---
Test Date: 2022-05-27 Test Time: 11:52:49 Supervisor Filter Assembly: MB MEASUREMENT RESULTS: Intervals: Rate: 94 LA: 158 QRSD: 94 QT: 380 QTc: 475 [place]: P: 27 LA: 158 QRS: 77 T: 261 INTERPRETIVE STATEMENTS: Normal sinus rhythm Marked ST abnormality, possible inferior subendocardial injury Marked ST abnormality, possible anterolateral subendocardial injury Abnormal ECG Compared to ECG 02/19/2000 20:23:00 ST (T wave) deviation now present Sinus arrhythmia no longer present Electronically Signed On 05-30-22 07:56:15 CDT by Mariano Oates
[2022-05-30] MEDS: PIPER TAZO 3.375 GM in NA CHLORIDE 0.9% 100 ML IV SCH (08:24)
[2022-05-30] MEDS: FAMOTIDINE 20 MG/2 ML VIAL IV SCH (08:25)
[2022-05-30] MEDS: D5W 1,000 ML with NA BICARB 8.4% 100 MEQ IV SCH ×2 (08:44)
[2022-05-30 09:37] LABS: Arterial Blood Carboxyhemoglob 0.5 % (0-1.5); Blood Gas Oxyhemoglobin 93.7 % (94-97); Blood O2 Saturation 95.6 % (92-98.5)
[2022-05-30 09:45] VITALS: TEMP 97.5
[2022-05-30 10:33] VITALS: BP 96/54
--- NOTE | 2022-05-30 10:46 | P.PN ---
Date of Service: 05/30/22 Patient seen and examined on rounds this morning remains on ventilator, unresponsive. Not on any sedation pupils fixed/dilated. no corneal reflexes, no brain stem reflexes Apnea test performed this morning - with no spontaneous movements or respirations noted for the 10 minute duration of the test. Time of : 08:05 am on 05/30/22
[2022-05-30] MEDS ORDERED: NOREPINEPHRINE 8 MG in Dextrose 5%-Water 500 ML IV SCH (11:00)
[2022-05-30] MEDS ORDERED: EPINEPHrine 1 MG/10 ML SYR IV ONE (11:27)
[2022-05-30] MEDS ORDERED: SODIUM CHL 0.9% 1000 ML BAG IV ONE (11:27)
[2022-05-30] MEDS ORDERED: KCL 20 MEQ/100 mL IVPB 20 MEQ/100 ML BAG IV SCH (13:00)
[2022-05-30 13:59] LABS: Absolute Lymphocytes (CBC) 1.5 K/uL (0.7-4.9); Hematocrit 43.3 % (39.6-49.0); Lymphocytes % 10.9 % (15.3-44.8); MCV 98.2 fL (80-100); MPV 9.8 fL (7.6-11.3); RBC Red Blood Cell Count 4.41 M/uL (4.33-5.43)
[2022-05-30 14:05] LABS: Protime INR 1.36
[2022-05-30 14:51] LABS: ALT/SGPT 80 U/L (12-78); AST/SGOT 76 U/L (15-37); Albumin 2.8 g/dL (3.4-5.0); Alkaline Phosphatase 67 U/L (45-117); BUN Blood Urea Nitrogen 46 mg/dL (7-18); Bicarbonate 27 mmol/L (21-32); Bilirubin Direct 0.3 mg/dL (0-0.2); Bilirubin Total 0.9 mg/dL (0.2-1.0); Glomerular Filtration Rate 11 ml/min (=/>90); Protein, Total 6.1 g/dL (6.4-8.2)
[2022-05-30 14:52] LABS: Glucose Level 534 mg/dL (74-106); Phosphorus < 0.5 mg/dL (2.5-4.9); Potassium 1.8 mmol/L (3.5-5.1); Sodium Level 170 mmol/L (136-145)
== END 2022-05-30 08:05 | disposition expired | DRG 296 ==
LOC: ER 11:50 → ERHOLD 12:20 → 3RD-ICU 15:44 → OBSVTOIN 05-28 08:35
PROVIDERS: ADMIT Internal Medicine Sleep Medicine; ATTEND Hospitalist
PROC: 5A1945Z Respiratory Ventilation, 24-96 Consecutive Hours (ICD-10-PCS; principal; 2022-05-27)
DX: I46.9 Cardiac arrest, cause unspecified (principal); J96.02 Acute respiratory failure with hypercapnia; G93.1 Anoxic brain damage, not elsewhere classified; R57.9 Shock, unspecified; E11.9 Type 2 diabetes mellitus without complications; Z20.822 Contact with and (suspected) exposure to COVID-19; Z66 Do not resuscitate
CPT/HCPCS: 36415; 51702; 70450; 71045; 72125; 80048; 80053; 80076; 80307; 80320; 80329; 81003; 81015; 82150; 82248; 82533; 82550; 82553; 82805; 82947; 82977; 83036; 83690; 83735; 83880; 84100; 84484; 85025; 85610; 85730; 86900; 86901; 87040; 87086; 87088; 92950; 93005; 94002; 94003; 99291; 99292; G0378; J0171; J0696; J1100; J2543; J2704; J3010; J3480; J3490; J7030; J7060; Q2009; U0003

== ENCOUNTER 2022-05-30 08:05 | Inpatient (IN) | payer OTHER ==
[2022-05-30] MEDS ORDERED: HYDROCORTISONE NA SUC IV ONE (14:05)
[2022-05-30] MEDS ORDERED: NA CHLORIDE 0.9% IV ONE (14:05)
[2022-05-30] MEDS ORDERED: HYDROCORTISONE SUC 100 MG INJ IV SCH (15:00)
[2022-05-30] MEDS ORDERED: D5W 1,000 ML with NA BICARB 8.4% 150 MEQ IV SCH ×2 (15:00)
[2022-05-30 15:24] VITALS: O2SAT 95; BMI 28.7
[2022-05-30] MEDS: KCL 20 MEQ/100 mL IVPB 20 MEQ/100 ML BAG IV SCH ×2 (15:27→16:18)
[2022-05-30] MEDS ORDERED: NOREPINEPHRINE 4 MG in D5W 250 ML IV SCH (17:00)
[2022-05-30] MEDS ORDERED: NOREPINEPHRINE 8 MG in Dextrose 5%-Water 500 ML IV SCH (17:00)
[2022-05-30 17:37] VITALS: TEMP 97.9
[2022-05-30] MEDS ORDERED: HEPARIN 5000 UNIT/ML 1 ML VIAL ONE (17:53)
[2022-05-30 18:11] VITALS: BP 116/64
[2022-05-30] MEDS ORDERED: ROCURONIUM 50 MG/5 ML VIAL IV ONE (18:39)
[2022-05-30] MEDS ORDERED: NA CHLORIDE 0.9% 500 ML ONE (18:41)
--- OUTSIDE RECORDS SUMMARY | 2022-06-14 13:40 | XMS REPORT | Continuity of Care Document ---
:1975 Author Organization [facility] t Address [address] [place] [address] Care Team Providers Name Role Phone Lo Attending Clinician Unavailable Physician, Primary or Family Admitting Clinician Unavailabl e Payers Payer Name Policy Type Policy Number Effective Date Expiration Date S ource Problems This patient has no known problems. Allergies, Adverse Reactions, Alerts Allergy Allergy Status Severity Reaction(s) Onset Inactive Treating Comm ents Source Name Type Date Date Clinician No Known DA Active U 2020-11 [facility] Allergie 2- Clear s 00:00: [address] No Known DA Active U 2000- [facility] Contrast 8- Clear Allergie 00:00: [facility] No Known DA Active U 2000- [facility] Drug 8-25 Clear Allergie 00:00: [facility] No Known DA Active U 2000-0 [facility] Food 8-25 Clear Allergie 00:00: [facility] No Known DA Active U 2000-0 [facility] Other 8-25 Clear Allergie 00:00: [facility] Medications This patient has no known medications. Procedures This patient has no known procedures. Encounters Start End Encounter Admission Attending Care Care Encounter Source Date/Time Date/Time Type Type Clinicians Facility Department ID 2021-11-15 2021-11-15 Emergency EM Jesse Love [facility]ERS [id number] [facility] 15:41:00 16:20:00 [id number] [facility] 2021-11-15 2021-11-15 Emergency EM Jesse Love [facility] [id number] [facility] 15:41:00 16:20:00 95 [facility] Results Test Description Test Time Test Comments Results Result Comments Source VITAMIN D, 25 [place] 2022-03-16 03:51:38 Test Item Value Reference Range Interpretation Comme nts VITAMIN D, 25 OH (test code 31 NG/ML SEE BELOW NOTE: 25-HYDROXYVITAMIN D ASSAY = 4958) INCLUDES 25-HYD ROXYVITAMIN D2 AND D3. METHOD OLOGY IS CHEMILUMINESCEN T IMMUNOASSAY. I NTERPRETIVE RANGES PEDIATRIC (<17 YEARS) . . . . . . . . . . . NG/ ML 20-100ADULT: I NSUFFICIENT . . . . . . . . . . . . . . NG/ML <20 SUBOPTI MAL . . . . . . . . . . . . . . . NG/ ML 20-29 OPTIMAL . . . . . . . . . . . . . . . . . NG/ML 30-100 HEMOGLOBIN [id number] 03:48:31 Test Item Value Reference Range Interpretation Comments HEMOGLOBIN A1c (test 8.6 % 4.2-5.6 H [facility] code = 35802) ASSOCIATION IDELINES FOR HGB A1C: PREDIABETES/INC REASED RISK . . . . . . . 5.7 -6.4% DIAGNOSIS OF D IABETES . . . . . . . . . > =6.5% WITH CONFIRM ATION OR APPROPRIATE SYM PTOMS NOTE: ASSAY MAY BE AFFECTED BY HEMOGLOBINOP ATHIES (SICKLE HERVE L ANEMIA, S-C DISEASE, OTHERS ) OR ARTIFICIALLY LO WERED BY DECREASED RED C ELL SURVIVAL (HEMOLYTIC ANEM IAS, BLOOD LOSS, ETC.) . CONSIDER ALTERNATE TESTI NG OR LABORATORY CONS ULTATION. [id number] 03:42:28 Test Item Value Reference Range Interpretation Comments TESTOSTERONE (test 371 NG/DL 300-890 UN LESS code = 2830) OTHERWISE INDIC ATED, ALL TESTING PER FORMED ATCLINICAL PATH [facility] [place] [place] [address] LABORATORY DIRE CTOR: FERN MCCRACKEN M.D. CLIA NUMBER [id number] CAP ACCREDITATION N O. [id number] COMPREHENSIVE METABOLIC [id number] 03:34:32 Test Item Value Reference Range Interpretation Comments GLUCOSE (test code = 193 MG/DL 70-99 H 2216) BUN (test code = 16 MG/DL 6-20 2207) CREATININE (test 0.72 MG/DL 0.80-1.40 L code = 2214) eGFR (2020 CKD-EPI) 113 >60 (test code = 23424) ML/MIN/1.73 CALC BUN/CREAT (test 22 RATIO 6-28 code = 2235) SODIUM (test code = 142 MEQ/L 652-748 5257) POTASSIUM (test code 4.6 MEQ/L 3.5-5.4 = 2227) CHLORIDE (test code 106 MEQ/L 95-107 = 2214) CARBON DIOXIDE (test 22 MEQ/L 19-31 code = 2206) CALCIUM (test code = 9.8 MG/DL 8.5-10.5 2208) PROTEIN, TOTAL (test 7.3 G/DL 6.1-8.3 code = 222) ALBUMIN (test code = 4.7 G/DL 3.5-5.2 2200) CALC GLOBULIN (test 2.6 G/DL 1.9-3.7 code = 224) CALC A/G RATIO (test 1.8 RATIO 1.0-2.6 code = 2234) BILIRUBIN, TOTAL 0.4 MG/DL See_Comment [Automated message] (test code = 2207) The syste m which generated this result transmit davis reference range : <=1.2. The refe rence range was not u sed to interpret th is result as normal/abnormal . ALKALINE PHOSPHATASE 50 U/L 40-118 (test code = 2204) AST (test code = 19 U/L 9-50 2217) ALT (test code = 39 U/L 5-50 2218) LIPID [id number] 03:34:32 Test Item Value Reference Range Interpretation Comments CHOLESTEROL (test 220 MG/DL <200 H code = 2210) TRIGLYCERIDES (test 90 MG/DL <150 code = 2232) HDL CHOLESTEROL (test 39 MG/DL >39 L code = 2220) CALC LDL CHOL (test 161 MG/DL <100 H NOTE: C ALCULATED LDL code = 2237) IS BASED ON LUIS-TRISTAN METHOD WHICHINCLUDES ADJUSTABLE TRIGLYCERIDE:VL DL CHOLESTEROL RAT IO.THIS FACTOR VARIES B Y MEASURED TRIGLY CERIDE AND NON-HDLCHOL ESTEROL CONCENTRATIONS WITH INCREASED CALCU LATED LDL SEENIN HIGH ER TRIGLYCERIDE OR LOWER NON-HDL SPECIME NS. FOR MOREINFORMATION , SEE CLIENT ANNOUNCE MENT AT [email or web address] RATIO LDL/HDL 4.13 RATIO <3.55 H (test code = 2238) CBC W/AUTO DIFF WITH [id number] 03:14:58 Test Item Value Reference Range Interpretation Comments WBC (test code = 5.6 K/UL 3.5-11.0 1001) RBC (test code = 4.64 M/UL 4.50-6.10 1002) HEMOGLOBIN (test code 14.2 G/DL 13.5-17.0 = 1003) HEMATOCRIT (test code 43.8 % 40.0-51.0 = 1004) MCV (test code = 94.4 fL 80.0-99.0 1005) MCH (test code = 30.6 PG 25.0-33.0 1006) MCHC (test code = 32.4 G/DL 31.0-36.0 1007) RDW (test code = 12.9 % 11.5-15.0 1038) NEUTROPHILS (test 58.0 % code = 1008) LYMPHOCYTES (test 27.1 % code = 1010) MONOCYTES (test code 9.2 % = 1011) EOSINOPHILS (test 4.4 % code = 1012) BASOPHILS (test code 0.9 % = 1013) IMMATURE GRANULOCYTES 0.4 % (test code = 1036) NUCLEATED RBCS (test 0.0 /100 See_Comment [Autom ated code = 1065) WBC'S message] The sy stem which generated this result transmitted reference range : 0.0. The refere nce range was not u sed to interpret th is result as normal/abnormal . PLATELET COUNT (test 307 K/UL 130-400 code = 1015) ABSOLUTE NEUTROPHILS 3.27 K/UL 1.50-7.50 (test code = 1066) ABSOLUTE LYMPHOCYTES 1.53 K/UL 1.00-4.00 (test code = 1067) ABSOLUTE MONOCYTES 0.52 K/UL 0.20-1.00 (test code = 1068) ABSOLUTE EOSINOPHILS 0.25 K/UL 0.00-0.50 (test code = 1040) ABSOLUTE BASOPHILS 0.05 K/UL 0.00-0.20 (test code = 1069) ABS IMMATURE 0.02 K/UL 0.00-0.10 GRANULOCYTES (test code = 1020) ABS NUCLEATED RBCS 0.00 K/UL 0.00-0.11 (test code = 99031)
== END 2022-05-30 23:32 | disposition expired | DRG 951 ==
LOC: 3RD-ICU 08:05
DX: Z02.89 Encounter for other administrative examinations (principal)
CPT/HCPCS: J1644; J1720; J3480; J7040; J7060